=== PATIENT | male | born 1985 | race Caucasian/White ===

== ENCOUNTER 2017-07-20 12:46 | Emergency (ER) | payer OTHER ==
[2017-07-20 12:48] VITALS: BP 140/99
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
== END 2017-07-20 13:23 | disposition home or self-care (01) ==
LOC: ER 12:59
DX: M25.561 Pain in right knee (principal); V89.2XXA Person injured in unspecified motor-vehicle accident, traffic, initial encounter
CPT/HCPCS: 99281

== ENCOUNTER → 2017-07-20 | Outpatient (CLI) | payer OTHER | LOC: AMB 12:06 | PROVIDERS: ATTEND Nurse Practitioner | DX: M25.561 Pain in right knee (principal); R51 Headache; M79.89 Other specified soft tissue disorders; V68.9XXA Unspecified occupant of heavy transport vehicle injured in noncollision transport accident in traffic accident, initial encounter; Y92.411 Interstate highway as the place of occurrence of the external cause | CPT/HCPCS: A0425; A0429 ==